=== PATIENT | female | born 1975 | race Caucasian/White ===

== ENCOUNTER 2016-10-27 16:50 | Emergency (ER) | payer MEDICAID, OTHER ==
[~2016-10-27] VITALS: Ht 175.3 cm; Wt 70.0 kg
[~2016-10-27 16:50] MED LIST: ALPR1 PO
[2016-10-27 16:52] VITALS: BP 153/85; PULSE 84; RESP 20; TEMP 97.6; O2SAT 100
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
[2016-10-27] MEDS ORDERED: IBUP800T23 PO (17:13)
[2016-10-27] MEDS ORDERED: MEDR4PAK PO (17:13)
--- NOTE | 2016-10-27 17:25 | RADRPT ---
EXAM DATE/TIME: 10/27/2016 17:25 [facility] COMPARISON: No previous studies available for comparison. INDICATIONS : Left wrist pain for one month. MEDICAL HISTORY : None. SURGICAL HISTORY : None. ENCOUNTER: Initial ACUITY: 1 month PAIN SCORE: 8/10 LOCATION: medial side of left wrist. FINDINGS: No acute fracture is seen. There is dorsal tilting of the lunate. There is chronic well-corticated hy pertrophic change seen adjacent to the ulnar styloid. CONCLUSION: No acute fracture is seen. There is dorsal tilting of the lunate. Live Asencio MD on October 27, 2016 at 17:22 Board Certified Radiologist. This report was verified electronically.
== END 2016-10-27 18:25 | disposition home or self-care (01) ==
LOC: NEPB 16:50
DX: M25.532 Pain in left wrist (principal); R20.2 Paresthesia of skin; X50.0XXA Overexertion from strenuous movement or load, initial encounter; Y92.9 Unspecified place or not applicable; Y99.0 Civilian activity done for income or pay
CPT/HCPCS: 73110; 99283; L3908